=== PATIENT | female | born 1990 | race Caucasian/White ===

== ENCOUNTER 2017-06-08 13:32 | Emergency (ER) | payer MEDICAID, SELFPAY ==
[2017-06-08 13:33] VITALS: BP 113/70; PULSE 105; RESP 18; TEMP 36.6; O2SAT 99; BMI 29.0
[2017-06-08] MEDS: Ondansetron 4 MG/2 ML Vial IV (14:15)
[2017-06-08 14:29] LABS: Absolute Neutrophil Count 4.6 X10^3/uL (2.0-7.7); Basophil# 0.02 X10^3/uL; Basophil% 0.3 % (0-1); Eosinophil# 0.41 X10^3/uL; Eosinophils% 5.5 % (0-5); Hematocrit 37.4 % (37-47); Hemoglobin 12.8 g/dl (12.0-15.0); Lymphocyte % 24.4 % (19-41); Mean Corp Hgb Conc 34.2 g/gl (32-36); Mean Corpuscular Hgb 30.8 pg (27.0-32.0); Mean Corpuscular Volume 89.9 fL (81-99); Mean Platelet Vol. 9.9 fl (6.2-12.0); Monocyte# 0.53 X10^3/uL; Monocyte% 7.2 % (0-10); Neutrophil # 4.62 X10^3/uL (2.7-7.7); Neutrophil % 62.5 % (47-70); POSITIVE COUNT NO; POSITIVE DIFFERENTIAL NO; POSITIVE MORPHOLOGY NO; Platelet Count 289 K/mm3 (150-450); RBC Distribution Width CV 11.9 % (11.6-14.6); RBC Distribution Width SD 38.9 fl (35.1-43.9); Red Blood Count 4.16 M/mm3 (4.2-5.4); White Blood Count 7.4 K/mm3 (4.4-11.0)
[2017-06-08 14:36] LABS: Anion Gap 9 (5-15); BUN 16 mg/dL (7-18); BUN/Creat Ratio 19.4 RATIO (10-20); Calcium,Total 9.2 mg/dL (8.5-10.1); Chloride 104 mmol/L (98-107); Creatinine, Serum 0.82 mg/dL (0.55-1.02); EST Glomerular Filtration Rate 88 mL/min (>60); Est Glom Filt Rate - Afr Amer 107 mL/min (>60); Glucose 75 mg/dL (74-106); Potassium 3.9 mmol/L (3.5-5.1); Sodium Level 139 mmol/L (136-145)
--- NOTE | 2017-06-08 14:54 | RAD_ITS ---
STUDY: X-RAY - RIGHT FOOT CLINICAL: Female, 26 years old. With and surgery 2 weeks ago TECHNIQUE: 3 view(s) of the foot. COMPARISON: None. FINDINGS: Normal talus, calcaneus, and tarsal bones. Normal visualized subtalar, talonavicular, calcaneocuboid, tarsal and tarsometatarsal articulations. His postoperative change in the distal first metatarsal secured by cortical screw. There is a staple like nail transfixing the proximal first phalanx. There is no visualized evidence of healing. There is mild soft tissue swelling. Normal second through fifth metatarsophalangeal joints. Normal interphalangeal joints and phalanges of the lesser toes. RAD/Foot min 3 Views IMPRESSION: Postoperative change. Minimal evidence of interval healing. There is soft tissue swelling. There is no obvious bony erosion. Electronically Signed: Raya Luque MD at 15:40 EST Tel , Service support ,
--- NOTE | 2017-06-08 15:54 | ED.DCSUM_ITS ---
- ER Visit Summary Date of Service: 06/08/17 Chief Complaint: Postoperative wound check History of Present Illness: The patient is a 26 F who had a right bunionectomy by Dr. Duran, a tray service worker in the vagina, on May 21. She reports that shortly thereafter she was told that it was infected and she was placed on Keflex for 1 week. She is now finished that and it was changed to a new antibiotic, the name of which she does not know, and Dionisio has been on this for the past 5 days. She reports that she has aching, sharp pain is 10 out of 10 with being upright at 9 out of 10 at rest. She reports she has paresthesias around the cut. States she had a fever of 101? yesterday and chills. She has had nausea without vomiting. Patient last saw the tray service worker 2 days ago and her next appointment was June 19. Physical Examination: Vitals: Stable. Afebrile. General: Well-nourished and well-developed. Head: Normocephalic atraumatic. Neck: Supple, no lymphadenopathy. No JVD. Nontender. Cardiovascular: Regular rate and rhythm. No murmurs. Respiratory: No respiratory distress. Clear to auscultation bilaterally. Abdominal: Soft, nontender, nondistended, normal bowel sounds. No guarding, rebound, or peritoneal signs. Back: Nontender. Extremities: Incision over the distal portion of her right first metatarsal and proximal phalanx. The incision is clean, dry, and intact. There is no surrounding erythema or fluctuance. She does have ecchymosis over this area in different stages of healing. Skin: Normal color, no rash. Neurologic: Alert and oriented ?3. Cranial nerves II through XII are intact. Normal strength and sensation. Psych: Normal affect. Test Results: CBC is remarkable for eosinophils of 6. Chem-7 is normal. Right foot x-ray shows the hardware to be intact. There are postoperative changes with minimal evidence of interval healing. Soft tissue swelling. No obvious bony erosion. Emergency Department Course and Treatment: Patient had an IV placed. She was treated with morphine and Zofran IV. She is resting comfortably. Treatment Plan: The patient has lost confidence in her tray service worker. She is asking for a second opinion. Because of this I discussed her with Dr. Partida who is agreed to see her. An [facility] report was obtained and only shows prescriptions for opiates since having her surgery. She will be given a prescription for Percocet and instructed to continue her antibiotics. Follow- up with podiatry as soon as possible. Return to the emergency department for any worsening symptoms. Disposition: To home in improved and stable condition. Impression: 1. Postop day #18 status post right bunionectomy. This note was generated with [employer] dictation software. It may contain incorrect words, spelling, and punctuation that were not noted in review of the chart prior to signing ED Disposition - Plan for ED Patient: Disposition: Home or Assisted Living Chief Complaint: Wound Check Instructions: ED Post Op Pain Prescriptions: Oxycodone HCl/Acetaminophen [Percocet 5/325] 1 tablet PO Q6H PRN PRN 5 Days #20 tablet PRN Reason: Pain Ondansetron [Zofran Odt] 4 mg PO Q8H PRN PRN #10 tablet PRN Reason: Nausea Referrals: Lacie Partida DPM [STAFF PHYSICIAN] - 3-5 Days
== END 2017-06-08 16:06 | disposition home or self-care (01) ==
PROVIDERS: Emergency Provider Emergency Medicine
DX: Z48.89 Encounter for other specified surgical aftercare (principal); R20.2 Paresthesia of skin; R11.0 Nausea; Z72.0 Tobacco use; Z98.890 Other specified postprocedural states
CPT/HCPCS: 73630; 80048; 85025; 96374; 96375; 99284; A4216; J2405

== ENCOUNTER → 2017-06-09 17:02 | Outpatient (CLI) | payer MEDICAID, SELFPAY | PROVIDERS: Visit Provider Podiatrist | DX: L03.115 Cellulitis of right lower limb (principal); L97.512 Non-pressure chronic ulcer of other part of right foot with fat layer exposed | CPT/HCPCS: 87070; 87205 ==